=== PATIENT | male | born 1980 | race Two or more races ===

== ENCOUNTER 2024-07-27 13:43 | Emergency (ER) | payer OTHER ==
[~2024-07-27] VITALS: Ht 182.9 cm; Wt 81.6 kg
[2024-07-27] MEDS ORDERED: HYOSCYAMINE0.125 M1 SL (14:15)
[2024-07-27] MEDS ORDERED: FAMOTIDINE40 MG PO (14:15)
[2024-07-27] MEDS ORDERED: OMEPRAZOLE40 MG PO (14:15)
[2024-07-27] MEDS ORDERED: SUCRALFATE1 GM PO (14:15)
[2024-07-27] MEDS ORDERED: FAMOtidine 10 MG/ML (4ML VIAL) IV STA (15:08)
[2024-07-27] MEDS ORDERED: ONDANSETRON HCL 2 MG/ML VIAL IM STA (15:09)
[2024-07-27] MEDS ORDERED: FAMOTIDINE/PF 20 MG/2 ML VIAL ONE (15:19)
[2024-07-27] MEDS ORDERED: ONDANSETRON HCL 2 MG/ML VIAL ONE (15:19)
== END 2024-07-27 16:05 | disposition home or self-care (01) ==
LOC: ER 13:43
DX: K29.70 Gastritis, unspecified, without bleeding (principal); R11.10 Vomiting, unspecified